=== PATIENT | female | born 1940 | race Caucasian/White ===

== ENCOUNTER 2017-05-26 19:49 | Emergency (ER) | payer MEDICARE, OTHER ==
[~2017-05-26] VITALS: Ht 149.9 cm; Wt 59.1 kg
[2017-05-26 19:56] VITALS: BP 135/81; PULSE 88; RESP 18; O2SAT 96
--- NOTE | 2017-05-26 20:08 | ED.REPORT ---
HPI-Abd Pain F 40 and Over Date of Service May 26, 2017 ED Provider: Marito Vicente MD Patient is a 76 year old female who presents to the ED complaining of epigastric abdominal pain onset this afternoon. Associated symptoms include diarrhea for the past 5 days, nausea, vomiting and dizziness. She reports that her vomit looked like "coffee grounds". She denies hematochezia or black/tarry stool. The patient states that she has tried taking Imodium for her diarrhea. She reports that she had a recent UTI and finished a course of antibiotics. The patient has a history of a small growth removal from her small intestine and hospitalization after having a leak in the anastomosis. Nursing Notes Stated Complaint: VOMITING /STOMACH PAIN Chief Complaint: Female Abdominal Pain Nursing Notes Reviewed: Yes Allergies: Uncoded Allergies: ANTIBIOTICS (Allergy, Unknown, 05/26/17) Scheduled Ondansetron ODT (Ondansetron ODT) 4 Mg Tab.rapdis 4 MG PO TID General Time Seen by MD: 20:08 Chief Complaint Abdominal pain Hx Obtained From: Patient Arrived By: Walk-in Sudden in Onset?: Yes Onset Occurred: 1 - 4 hours ago Symptom Duration: Since onset Location: : Epigastric Quality: Painful Severity: Current: Moderate Associated with: Reports: Diarrhea, Nausea, Vomiting Similar Sx Previous: No Past Medical History Past Medical History stomach ulcer Past Surgical History hernia repair small growth removed from small intestine, with hospitalization after a leak in the anastomosis Reports: Appendectomy, Cholecystectomy Smoking History Unknown if Ever Smoker Social History Alcohol Use: Denies alcohol use Ambulatory Status Independent Review of Systems Constitutional: Denies: Chills, Fever Respiratory: Denies: Non-productive cough, Shortness of breath GI: Reports: Abdominal pain, Diarrhea, Nausea, Vomiting, Denies: Bloody/tarry stool, Hematochezia Complete sys rev & neg: except as marked. Skin: Denies Itching, Denies Rash Neurologic: Reports: Dizziness Physical Exam Vital Signs Vital Signs (First) Date Time Temp Pulse Resp B/P Pulse Ox O2 Delivery O2 Flow Rate FiO2 05/26/17 19:56 36.7 88 18 135/81 96 Room Air Initial VS: Reviewed General/Constitutional: Awake, Alert Respiratory / Chest: Atraumatic, Breath sounds NL, Breath sounds = bilat, No respiratory distress Cardiovascular: Heart rate NL, Regular rhythm, Heart sounds NL, No gallop, No murmurs, No rubs Abdomen: Atraumatic, Soft, BS normoactive Tenderness/Guarding/Rebound: Positive: Tender epigastric tender left side Back: Atraumatic, No CVA tenderness Head / Eyes: Atraumatic, Normocephalic, PERRL, EOMI Skin: Atraumatic, Color NL, No rash, Warm, Dry Neurologic: Oriented X3, Speech NL, No motor deficits, No sensory deficits Upper Extremity / MS: Atraumatic, Full range of motion Psychiatric: Affect NL, Mood NL Interpretation & Diagnostics Lab Results Interpretation Result Diagram: 05/26/17205605/26/172056 Test 05/26/17 20:14 05/26/17 20:19 05/26/17 20:57 Hold Guerra Top Tube Received (Received) Urine Color Yellow (YELLOW) Urine Appearance Hazy (CLEAR,HAZY) Urine pH 5.0 (5.0-8.0) Urine Specific [place] 1.020 (1.003-1.035) Urine Protein Negativemg/dL (NEG,TRACE) Urine Glucose (UA) Negativemg/dL (NEGATIVE) Urine Ketones 15mg/dL (NEGATIVE) Urine Occult Blood Negative (NEGATIVE) Urine Nitrite Negative (NEGATIVE) Urine Bilirubin Negative (NEGATIVE) Urine Urobilinogen Normalmg/dL (NORMAL) Urine Leukocyte Esterase Trace (NEGATIVE) Urine RBC 0-2/hpf (0-2) Urine WBC 6-10/hpf (0-5) Urine Epithelial Cells Many/hpf (NONE-MOD) Urine Crystals None seen (NONE SEEN) Urine Bacteria Few/hpf (NONE-FEW) Urine Hyaline Casts None/lpf (NONE) Urine Granular Casts None seen (NONE SEEN) Urine Waxy Casts None seen (NONE SEEN) Urine Red Blood Cell Casts None seen (NONE SEEN) Urine White Blood Cell Casts None seen (NONE SEEN) Urine Mucus None seen (None Seen) Urine Trichomonas None seen (NONE SEEN) Urine Yeast None (NONE SEEN) Urinalysis Comment None Urine Culture Reflexed Indicated White Blood Count 11.8th/mm3 (3.8-10.1) Red Blood Count 4.75mil/mm3 (3.90-5.20) Hemoglobin 14.7g/dL (12.0-15.6) Hematocrit 44.3% (35.0-46.0) Mean Corpuscular Volume 93.3fL (81-100) Mean Corpuscular Hemoglobin 30.9pg (27.0-35.0) Mean Corpuscular Hemoglobin Concent 33.2% (32.0-37.0) Red Cell Distribution Width 13.5% (12.3-15.4) Platelet Count 217bil/L (150-400) Neutrophils (%) (Auto) 80.2% (40-74) Lymphocytes (%) (Auto) 9.0% (14-46) Monocytes (%) (Auto) 9.6% (4-12) Eosinophils (%) (Auto) 0.8% (0-5) Basophils (%) (Auto) 0.2% (0-3) Prothrombin Time 10.3sec (8.1-12.5) Prothromb Time International Ratio 0.96ratio Sodium Level 141mEq/L (134-144) Potassium Level 3.9mEq/L (3.5-5.2) Chloride Level 103mEq/L (97-108) Carbon Dioxide Level 24mmol/L (18-29) Blood Urea Nitrogen 13mg/dL (8-27) Creatinine 0.50mg/dL (0.57-1.00) Estimat Glomerular Filtration Rate 172mL/min (>59) Glucose Level 113mg/dL (60-99) Calcium Level 8.8mg/dL (8.5-10.1) Total Bilirubin 0.5mg/dL (0.0-1.2) Aspartate Amino Transf (AST/SGOT) 40U/L (0-50) Alanine Aminotransferase (ALT/SGPT) 26U/L (0-32) Alkaline Phosphatase 58U/L (25-165) Total Protein 6.4g/dL (6.4-8.4) Albumin 3.7g/dL (3.4-5.0) Lipase 17U/L (13-60) ECG Interpretation ECG Interpretation: RBBB no acute changes Time: 20:19 Interpreted by: ED physician Normal ECG Interpretation: Normal rate (83), Normal sinus rhythm CT Abd / Pelvis Interpretation IMPRESSION: Small bowel mild distention, with a point of transition from relative dilatation to collapsed at the left lower quadrant where feculent transformation within several mildly dilated small bowel loops can be seen. This is near a right paramedian staple line at the abdomen/pelvis junction, and therefore a operative or inflammatory stricture or adhesion is the likely cause for this current mild small bowel distention/obstruction pattern. Dictated by: Walt Lara M.D. on 05/26/2017 at 22:02 Approved by: Walt Lara M.D. on 05/26/2017 at 22:06 Interpretation / Wet Read by: Interpret - Radiologist Re-Eval/Medical Decision Re-Evaluation/Progress #1: Time of Eval: 21:33 Re-Evaluation/Progress Note: Discussed plan for CT Re-Evaluation/Progress #2: Time of Eval: 22:32 Patient Status: Pain improved Re-Evaluation/Progress Note: Discussed CT results and plan for discharge. Patient understands and agrees to the plan. All questions were addressed. Counseled Regarding: Diagnosis, Lab results, Need for follow-up, When/why to return to ED Discharge & Departure Primary Impression: Epigastric abdominal pain Additional Impression: Nausea & vomiting Vomiting type: unspecified Vomiting Intractability: intractable Qualified Code: R11.2 - Nausea with vomiting, unspecified Disposition: Home Discharge Condition All VS Reviewed: Yes Condition: Stable Patient Instructions: Acute Abdominal Pain (ED) Additional Instructions: Emergency Department evaluation included interview exam labs and CT. There appears to be a partial small bowel obstruction which will hopefully resolve with clear liquids at home. Treatment small amounts of clear liquids. Ondansetron as needed for nausea. Use the oxycodone you already have for pain. Return emergency Department for increasing pain, frequent vomiting or fevers. Return if not improved in 24 hours. Follow-up with primary care as soon as possible. Referrals: Dayron Rubin MD Attestation Portions of this note were transcribed by Essence Daniels. I, Dr. Vicente personally performed the history, physical exam and medical decision-making; I reviewed and confirmed the accuracy of the information in the transcribed note. Signed by: Ciara Chapa, 05/26/17 copies to: Dayron Rubin MD, Donald L MD May 26, 2017 20:08 Jade Daniels May 26, 2017 20:14
[2017-05-26 20:33] LABS: APPEARANCE,URINE HAZY (CLEAR,HAZY); COLOR,URINE YELLOW (YELLOW); OCCULT BLOOD,URINE NEGATIVE (NEGATIVE); UROBILINOGEN,URINE NORMAL (NORMAL)
[2017-05-26] MEDS ORDERED: 0.9% Sodium Chloride 1,000 ML IV ONE (20:40)
[2017-05-26] MEDS: HYDROmorphone 0.5 mg/0.5 mL iSecure Syringe IVPUSH PRN ×3 (20:55→22:33)
[2017-05-26] MEDS: Ondansetron 2 mg/mL 2 mL Inj IVPUSH PRN ×3 (20:55→22:33)
[2017-05-26 21:01] LABS: BASOPHILS % (AUTO) 0.2 % (0-3); EOSINOPHILS % (AUTO) 0.8 % (0-5); MONOCYTES % (AUTO) 9.6 % (4-12); Mean Corpuscular Hemoglobin 30.9 pg (27.0-35.0); Mean Corpuscular Volume 93.3 fL (81-100); NEUTROPHILS % (AUTO) 80.2 % (40-74); Platelet Count 217 bil/L (150-400)
[2017-05-26 21:21] LABS: INR 0.96 ratio
--- NOTE | 2017-05-26 22:09 | DRSVH ---
PROCEDURE: CT ABDOMEN AND PELVIS WITH CONTRAST ([id number]) INDICATIONS: abd pain- epigastric and L sided TECHNIQUE: After the administration of intravenous contrast, 5 mm thick sections acquired from the diaphragm to the symphysis. 5 mm coronal and sagittal reformats were acquired. For radiation dose reduction, the following was used: automated exposure control, adjustment of mA and/or kV according to patient siz e. COMPARISON: None. FINDINGS: Image quality: Excellent. ABDOMEN: Lung bases: Lung bases are clear. Heart size is normal. Solid organs: Liver and spleen are normal in size and enhancement. Gallbladder is not visualized me tallic surgical clips are not seen. This may indicate use of non-metallic surgical clips during prio r cholecystectomy.. Biliary system is non dilated. Pancreas enhances normally. No adrenal nodules. Kidneys demonstrate normal size and enhancement, without hydronephrosis. Peritoneum and bowel: Bowel loops demonstrate normal wall thickness and caliber but there is colonic obstipation and mild prominence of fluid within the small bowel loops which are only mildly distende d by size criteria (over 3 cm diameter) note is made of an enteric staple line at the abdomen/pelvis junction the, centered to right of midline. There is feculent transformation of small bowel content at the left lower quadrant, best seen centered on series 2 image 40, and beyond this point and the op erative staple line there is relative collapse of small bowel loops extending to the terminal ileum. No free fluid or air. Nodes and vessels: No retroperitoneal or mesenteric adenopathy by size criteria. Aorta and inferior vena cava are normal in size. Miscellaneous: No ventral hernias. PELVIS: Genitourinary: Bladder wall thickness is normal. Miscellaneous: No inguinal hernias or adenopathy. Bones: No suspicious bony lesions. No vertebral body compression fractures. IMPRESSION: Small bowel mild distention, with a point of transition from relative dilatation to colla psed at the left lower quadrant where feculent transformation within several mildly dilated small bow el loops can be seen. This is near a right paramedian staple line at the abdomen/pelvis junction, an d therefore a operative or inflammatory stricture or adhesion is the likely cause for this current mi ld small bowel distention/obstruction pattern. Dictated by: Walt Lara M.D. on 05/26/2017 at 22:02 Approved by: Walt Lara M.D. on 05/26/2017 at 22:06
[2017-05-26 22:10] VITALS: BP 136/73; PULSE 93; RESP 18; O2SAT 99
[2017-05-26] MEDS ORDERED: _Ondansetron ODT 4 mg Tablet PO PRN (22:40)
[2017-05-26] MEDS ORDERED: ONDA4TAB12 PO (22:42)
[2017-05-26 23:05] VITALS: BP 136/76; PULSE 88; RESP 18; O2SAT 99
== END 2017-05-26 23:06 | disposition home or self-care (01) ==
LOC: SED 19:49
DX: R10.13 Epigastric pain (principal); R11.2 Nausea with vomiting, unspecified; Z88.1 Allergy status to other antibiotic agents
CPT/HCPCS: 36415; 74177; 80053; 81000; 83690; 85025; 85610; 87086; 87088; 93005; 96374; 96375; 96376; 99285; J1170; J2405; J7030; Q9967